=== PATIENT | female | born 1945 ===

== ENCOUNTER 2024-10-05 09:45 | Inpatient (IN) | payer OTHER ==
[~2024-10-05] VITALS: Wt 64.4 kg
[2024-10-05] MEDS ORDERED: PROTONIX40 MG PO (12:26)
[2024-10-05] MEDS ORDERED: COZAAR100 MG PO (12:26)
[2024-10-05] MEDS ORDERED: LOPRESSOR25 MG (12:27)
[2024-10-05] MEDS ORDERED: LIPITOR40 M1 PO (12:27)
[2024-10-05] MEDS ORDERED: ECOTRIN81 MG PO (12:27)
[2024-10-05] MEDS ORDERED: MIRTAZAPINE15 M1 PO (12:28)
[2024-10-05] MEDS ORDERED: PEPCID AC20 MG (12:28)
[2024-10-05] MEDS ORDERED: SINGULAIR10 MG PO (12:28)
[2024-10-05] MEDS ORDERED: CLONAZEPAM1 MG PO (12:29)
[2024-10-12] MEDS ORDERED: IBANDRONATE SO150 MG (08:54)
[2024-10-12] MEDS ORDERED: HYDROCHLOROTH12.5 M2 (08:54)
[2024-10-12] MEDS ORDERED: FLONASE16 GM (08:54)
[2024-10-12] MEDS ORDERED: LIDOCAINE HCL 1%/EPINEPHRINE 20ML VIAL IJ ONE (10:30)
[2024-10-12] MEDS ORDERED: METRONIDAZOLE/SODIUM CHLORIDE 500 MG/100 ML PIGGYBACK IV ONE (10:30)
[2024-10-12] MEDS ORDERED: BUPIVACAINE HCL 30 ML VIAL IJ ONE (10:30)
[2024-10-12] MEDS ORDERED: CEFTRIAXONE SODIUM 2,000 MG VIAL IV ONE (10:30)
[2024-10-12] MEDS ORDERED: MORPHINE SULFATE 4 MG/ML CARTRIDGE IV PRN (12:45)
[2024-10-12] MEDS ORDERED: OxyCODONE HCL 5 MG TABLET (ROXICODONE) PO PRN (12:45)
[2024-10-12] MEDS ORDERED: DEXTROSE 50 % IN WATER 0.5 G/ML VIAL IV PRN (12:45)
[2024-10-12] MEDS ORDERED: ONDANSETRON HCL 2 MG/ML VIAL IV PRN (12:45)
[2024-10-12] MEDS ORDERED: 0.9 % SODIUM CHLORIDE 1,000 ML IV SCH (12:45)
[2024-10-12] MEDS ORDERED: HYOSCYAMINE SULFATE 0.125 MG TAB.SUBL SL SCH (13:00)
[2024-10-12] MEDS ORDERED: ACETAMINOPHEN 500 MG GEL..CAP PO SCH (14:00)
[2024-10-12] MEDS ORDERED: ENALAPRILAT DIHYDRATE 1.25 MG/ML VIAL IV PRN (14:00)
[2024-10-12 14:28] LABS: ABG PH 7.354 (7.35-7.45); ABG PO2 105.2 mmHg (80-100); BICARBONATE 23.9 mmol/l (23-25)
[2024-10-12 14:29] LABS: o2 36 %
[2024-10-12 17:00] VITALS: BP 150/74; O2SAT 93
[2024-10-12] MEDS ORDERED: GABAPENTIN 300 MG CAPSULE PO SCH (17:00)
[2024-10-12] MEDS ORDERED: METRONIDAZOLE/SODIUM CHLORIDE 500 MG/100 ML PIGGYBACK IV SCH (17:00)
[2024-10-12 17:57] LABS: BASO % 0.3 % (0.1-1.2); EOS # 0.05 (0.04-0.54); EOS % 0.5 % (0.7-7.0); LYMPH # 2.15 (1.18-3.74); LYMPH % 20.2 % (19.3-53.1); MEAN PLATELET VOLUME 11.30 fl (9.4-12.4); MONO # 0.60 (0.24-0.82); MONO % 5.6 % (4.7-12.5); NEUT # 7.78 (1.56-6.13); NEUT % 72.9 % (34.0-71.1); RED CELL DISTRIBUTION WIDTH 13.6 % (11.6-14.4)
[2024-10-12 18:31] LABS: BUN CREA RATIO 14.0 (7.0-25.0); CREATININE SERUM 0.96 mg/dL (0.55-1.02); GFR 56.21; GLUCOSE FASTING 129.0 mg/dL (65-100); OSMOLALITY SERUM 292.0 MOSM/KG (275-295)
[2024-10-12] MEDS ORDERED: METOPROLOL SUCCINATE 50 MG TAB.SR.24H PO SCH (21:00)
[2024-10-12] MEDS ORDERED: MONTELUKAST SODIUM 10 MG TABLET PO SCH (21:00)
[2024-10-12] MEDS ORDERED: FAMOTIDINE/PF 20 MG/2 ML VIAL IV PUSH SCH (21:00)
[2024-10-12] MEDS ORDERED: CELECOXIB 200 MG CAPSULE PO SCH (21:00)
[2024-10-12 21:25] VITALS: O2SAT 95
[2024-10-13] VITALS (8 sets, daily range): BP systolic 109–127; BP diastolic 61–74; O2SAT 93–97
[2024-10-13 06:52] LABS: BASO % 0.4 % (0.1-1.2); EOS # 0.05 (0.04-0.54); EOS % 0.6 % (0.7-7.0); LYMPH # 1.10 (1.18-3.74); LYMPH % 12.4 % (19.3-53.1); MEAN PLATELET VOLUME 11.30 fl (9.4-12.4); MONO # 0.64 (0.24-0.82); MONO % 7.2 % (4.7-12.5); NEUT # 7.02 (1.56-6.13); NEUT % 78.8 % (34.0-71.1); RED CELL DISTRIBUTION WIDTH 13.6 % (11.6-14.4)
[2024-10-13] MEDS ORDERED: PHENOL 177 ML BOTTLE MM PRN (07:45)
[2024-10-13 08:36] LABS: BUN CREA RATIO 10.0 (7.0-25.0); CREATININE SERUM 0.91 mg/dL (0.55-1.02); GFR 59.79; GLUCOSE FASTING 134.0 mg/dL (65-100); OSMOLALITY SERUM 289.0 MOSM/KG (275-295)
[2024-10-13] MEDS ORDERED: BENZONATATE 200 MG CAPSULE PO SCH (09:00)
[2024-10-13] MEDS ORDERED: LOSARTAN POTASSIUM 100 MG TABLET PO SCH (09:00)
[2024-10-13] MEDS ORDERED: MAGNESIUM SULFATE IN WATER 50 ML IV NR (11:00)
[2024-10-13] MEDS ORDERED: ENOXAPARIN SODIUM 40 MG/0.4 ML SYRINGE SUBCUTANEO SCH (17:00)
[2024-10-13] MEDS ORDERED: ATORVASTATIN CALCIUM 40 MG TABLET PO SCH (17:00)
[2024-10-13] MEDS ORDERED: PATIENTS OWN MEDICATION (MEDICAMENTO EN PISO) PO SCH (21:00)
[2024-10-13] MEDS ORDERED: CLONAZEPAM 0.5 MG TABLET PO SCH (21:00)
[2024-10-13] MEDS ORDERED: TAMSULOSIN HCL 0.4 MG CAP PO SCH (21:00)
[2024-10-14] VITALS (9 sets, daily range): BP systolic 103–121; BP diastolic 52–74; O2SAT 94–97
[2024-10-14 07:16] LABS: BASO % 0.4 % (0.1-1.2); EOS # 0.34 (0.04-0.54); EOS % 4.2 % (0.7-7.0); LYMPH # 1.65 (1.18-3.74); LYMPH % 20.2 % (19.3-53.1); MEAN PLATELET VOLUME 11.70 fl (9.4-12.4); MONO # 0.48 (0.24-0.82); MONO % 5.9 % (4.7-12.5); NEUT # 5.64 (1.56-6.13); NEUT % 68.9 % (34.0-71.1); RED CELL DISTRIBUTION WIDTH 13.8 % (11.6-14.4)
[2024-10-14 07:24] LABS: BUN CREA RATIO 13.0 (7.0-25.0); CREATININE SERUM 1.07 mg/dL (0.55-1.02); GFR 49.59; GLUCOSE FASTING 106.0 mg/dL (65-100); OSMOLALITY SERUM 291.0 MOSM/KG (275-295)
[2024-10-14] MEDS ORDERED: ENOXAPARIN SODIUM 40 MG/0.4 ML SYRINGE SUBCUTANEO SCH (09:00)
[2024-10-14] MEDS ORDERED: Cyanocobalamin/Mecobalamin 1 TAB.SL SL SCH (09:00)
[2024-10-14] MEDS ORDERED: FAMOTIDINE/PF 20 MG/2 ML VIAL IV PUSH SCH (09:00)
[2024-10-14] MEDS ORDERED: SOD FERRIC GLUC COMPLX/SUCROSE 62.5 MG in 0.9 % SODIUM CHLORIDE 50 ML IV SCH (09:55)
[2024-10-14] MEDS ORDERED: POTASSIUM PHOS,M-BASIC-D-BASIC 3 MM/ML VIAL IV NR (10:15)
[2024-10-15 00:31] VITALS: O2SAT 94
[2024-10-15 01:57] VITALS: BP 117/68; O2SAT 95
[2024-10-15 06:10] LABS: BASO % 0.3 % (0.1-1.2); EOS # 0.51 (0.04-0.54); EOS % 7.0 % (0.7-7.0); LYMPH # 1.64 (1.18-3.74); LYMPH % 22.4 % (19.3-53.1); MEAN PLATELET VOLUME 11.50 fl (9.4-12.4); MONO # 0.41 (0.24-0.82); MONO % 5.6 % (4.7-12.5); NEUT # 4.70 (1.56-6.13); NEUT % 64.3 % (34.0-71.1); RED CELL DISTRIBUTION WIDTH 13.7 % (11.6-14.4)
[2024-10-15 06:23] VITALS: O2SAT 95
[2024-10-15 08:00] VITALS: BP 147/70; O2SAT 97
[2024-10-15 08:52] VITALS: O2SAT 95
[2024-10-15] MEDS ORDERED: TRAM1TAB98 PO (11:34)
[2024-10-15] MEDS ORDERED: HYOSCYAMINE0.125 M1 SL (11:34)
[2024-10-15] MEDS ORDERED: LEVOFLOXACIN500 MG PO (11:35)
[2024-10-15] MEDS ORDERED: PEPCID AC20 MG PO (11:35)
== END 2024-10-15 14:16 | disposition home or self-care (01) | DRG 331 ==
LOC: O/R 10-12 05:56 → SURH 10-12 07:00
PROVIDERS: Internal Medicine Geriatric Medicine; ADMIT Surgery; ATTEND Surgery
PROC: 07BB4ZZ Excision of Mesenteric Lymphatic, Percutaneous Endoscopic Approach (ICD-10-PCS; 2024-10-12)
PROC: 4A12X4Z Monitoring of Cardiac Electrical Activity, External Approach (ICD-10-PCS; 2024-10-12)
PROC: 0DTF4ZZ Resection of Right Large Intestine, Percutaneous Endoscopic Approach (ICD-10-PCS; principal; 2024-10-12 07:00)
DX: D12.0 Benign neoplasm of cecum (principal)